=== PATIENT | female | born 1970 | race Caucasian/White ===

== ENCOUNTER → 2021-09-27 12:36 | Outpatient (BNVA) | payer OTHER, SELFPAY | PROVIDERS: Family Provider Nurse Practitioner Family; PCP Nurse Practitioner Family; Visit Provider Emergency Medicine | DX: R68.89 Other general symptoms and signs (principal); J02.9 Acute pharyngitis, unspecified | CPT/HCPCS: 87071; 87400; 87880 ==

== ENCOUNTER → 2023-02-27 10:29 | Outpatient (BNVA) | payer OTHER, SELFPAY | PROVIDERS: Family Provider Nurse Practitioner Family; PCP Family Medicine; Referring Provider Family Medicine; Visit Provider Nurse Practitioner Family | DX: M19.011 Primary osteoarthritis, right shoulder (principal); G54.0 Brachial plexus disorders | CPT/HCPCS: 73030 ==

== ENCOUNTER → 2023-11-18 13:33 | Outpatient (BNVA) | payer OTHER, SELFPAY | PROVIDERS: Family Provider Nurse Practitioner Family; PCP Family Medicine; Visit Provider Student in an Organized Health Care Education/Training Program | DX: G56.03 Carpal tunnel syndrome, bilateral upper limbs; M65.352 Trigger finger, left little finger | CPT/HCPCS: 73130 ==

== ENCOUNTER → 2024-03-12 09:12 | Outpatient (BNVA) | payer OTHER, SELFPAY | PROVIDERS: Family Provider Nurse Practitioner Family; PCP Family Medicine; Visit Provider Family Medicine | DX: F33.1 Major depressive disorder, recurrent, moderate (principal); I10 Essential (primary) hypertension | CPT/HCPCS: 80053; 80061; 84439; 84443; 85025 ==

== ENCOUNTER 2024-06-17 17:35 | Outpatient (CLI) | payer OTHER, SELFPAY ==
[2024-06-17 18:27] LABS: Basophils # 0.1 10^3/uL (0.0-0.1); Eosinophils % 0.8 %; Hematocrit 39.5 % (36-47); Lymphocytes # 2.3 10^3/uL (0.8-4.8); Lymphocytes % 46.9 %; Mean Corpuscular HGB Conc 33.2 g/dL (30-55); Mean Corpuscular Hemoglobin 30.6 pg (27-33); Mean Corpuscular Volume 92.3 fl (85-98); Mean Platelet Volume 9.3 fL (7.4-10.4); Monocytes # 0.6 10^3/uL (0.2-0.9); Monocytes % 11.1 %; Neutrophils # 1.98 10^3/uL (1.8-7.7); Nucleated Red Blood Cells % 0 %; Platelet Count 274 10^3/cmm (157-399); Red Blood Count 4.28 10^6/uL (3.85-5.65); Red Cell Distribution Width 11.9 % (12.1-15.1); White Blood Count 4.95 10^3/uL (3.29-11.43)
[2024-06-17 18:30] LABS: Erythrocyte Sedimentation Rate 13 mm/hr (0-15)
[2024-06-17 18:40] LABS: Alanine Aminotransferase 7 U/L (0-33); Albumin Level 4.6 g/dL (3.5-5.2); Alkaline Phosphatase 67 U/L (35-105); Anion Gap 16.9 (5-19); Aspartate Amino Transferase 13 U/L (0-32); Blood Urea Nitrogen 13 mg/dL (6-20); Calcium 9.4 mg/dL (8.5-10.5); Carbon Dioxide 25 mmol/L (22-29); Chloride 101 mmol/L (98-107); Globulin 2.8 g/dL (1.3-4.6); Glomerular Filtration Rate 128.1 mL/min (90-130); Glucose 88 mg/dL (65-115); Osmolality Calculated 288 mOsm/kg (285-295); Potassium 3.9 mmol/L (3.5-5.1); Sodium 139 mmol/L (136-145); Total Bilirubin 0.3 mg/dL (0.15-1.2); Total Protein 7.4 g/dL (6.6-8.7); Uric Acid 3.4 mg/dL (2.4-5.7)
== END 2024-06-17 17:36 | disposition home or self-care (01) ==
LOC: LAB 17:36
PROVIDERS: Family Provider Nurse Practitioner Family; PCP Family Medicine; Visit Provider Student in an Organized Health Care Education/Training Program
DX: M06.4 Inflammatory polyarthropathy (principal)
CPT/HCPCS: 36415; 80053; 84550; 85025; 85651; 86140; 86200; 86225; 86235; 86431

== ENCOUNTER 2024-10-13 18:08 | Emergency (ER) | payer OTHER, SELFPAY ==
[2024-10-13] VITALS (10 sets, daily range): BP systolic 124–151; BP diastolic 68–87; PULSE 77–104; RESP 16–17; TEMP 36.6; O2SAT 95–99; BMI 25.8
--- NOTE | 2024-10-13 18:36 | ED_ITS ---
HPI - Nausea/Vomiting/Diarrhea 2 General: Chief complaint: Nausea/Vomiting/Diarrhea Stated complaint: vomitting Time Seen by Provider: 10/13/24 18:17 Source: patient Mode of arrival: ambulatory Limitations: no limitations History of Present Illness: Patient is a 53-year-old female who presents to the emergency department complaining of sudden onset nausea and vomiting beginning this afternoon. Patient states she ate turkey sausage and eggs this morning, went to the gym afterwards and got overwhelmingly sick to where she has been vomiting all day. Denies any blood or coffee-ground emesis with her vomit. States that she eats what she ate this morning all the time, has never had issues before. Denies any constipation, diarrhea, or changes in her bowel habits. Denies any pertinent past medical history. Denies known sick contacts. She does comment that she got sick like this once in the past and had to be admitted to the hospital due to severe dehydration. She is reporting some minor abdominal cramping which she thinks is from retching/vomiting. She notes that she has not been able to keep down liquids or solids. MD elicited complaint: nausea, vomiting and abdominal pain Onset (ago): hour(s) Associated nausea: Yes Associated abdominal pain: Yes Location of pain: Epigastric Severity: mild Quality: cramping Associated symtoms: Reports nausea; Denies chest pain, diaphoresis, dizziness, dysuria, headache(s) or palpitations Related Data Previous Rx's Medication Instructions Recorded ondansetron HCl 4 mg tablet 4 mg PO Q8H #20 tabs 10/13/24 Allergies Allergy/AdvReac Type Severity Reaction Status Date / Time No Known Allergies Allergy Verified 07/08/24 14:55 Review of Systems 2 General: Reports: 10 or more systems reviewed and unremarkable except in HPI and below Const: Denies: fever(s), chills, change in appetite, change in weight or diaphoresis ENMT: Denies: throat pain or hoarseness Card: Denies: chest pain, palpitations or lightheadedness Resp: Denies: dyspnea, productive cough or wheezing GI: Reports: abdominal pain, nausea and vomiting; Denies: hematemesis, coffee ground emesis, diarrhea or constipation : Denies: flank pain, difficulty voiding, dysuria, urinary frequency or urinary urgency Musc: Denies: neck pain or back pain Skin/Breast: Denies: rash or new lesions Neuro: Denies: headache(s) or dizziness PFSH ED 2 PFSH: Medical History Major depression Benign hypertension Meningioma Surgical History History of cholecystectomy History of tubal ligation S/P brain surgery Social History Smoking and tobacco/nicotine status: former use of tobacco/nicotine Alcohol intake: never Substance/Drug Use: never Caregiver/support person: Yes Lives independently: No Household members: spouse and children Housing: House Marital status: Do you think of yourself as: Straight/Heterosexual Current gender identity: Female Female Reproductive History: Date of menopause: 10/20/09 Physical Exam 2 Const: COMMON NORMALS: no acute distress, average body habitus, no limitations, healthy appearing and well nourished GENERAL APPEARANCE: c ooperative and comfortable ORIENTATION/CONSCIOUSNESS: Yes awake Eye: COMMON NORMALS: Equal, round and reactive pupils present, EOMs intact bilaterally, conjunctivae normal and normal visual chaudhary by confrontation C ONJUNCTIVA: Yes conjunctivae normal PUPIL: Yes Equal, round and reactive pupils present Neck/C-Spine: COMMON NORMALS: full ROM, supple and no JVD Resp: COMMON NORMALS: normal respiratory effort, No retractions, No use of accessory muscles and clear to auscultation bilaterally AUSCULTATION: clear to auscultation bilaterally, no crackles, no rales, no rhonchi and no wheezes Cardio: COMMON NORMALS: no JVD, regular rate, regular rhythm, S1 normal heart sound present, S2 normal heart sound present, No gallops present (Cardio), No clicks present (Cardio), No murmurs present (Cardio), No rub (Cardio) and Peripheral pulses 2+ throughout RATE: regular rate RHYTHM: regular rhythm HEART SOUNDS: S1 normal heart sound present and S2 normal heart sound present PERIPHERAL PULSES: Peripheral pulses 2+ throughout GI: COMMON NORMALS: Normal to inspection, nondistended, normoactive bowel sounds present, Soft to palpation, non-tender, No hepatosplenomegaly present and no masses AUSCULTATION: Yes normoactive bowel sounds PALPATION: Yes Soft to palpation, No Guarding due to palpation present (GI), No Rigid due to palpation and Yes No hepatosplenomegaly present RECTAL EXAM: deferred : COMMON NORMALS: Yes no CVA tenderness BLADDER/KIDNEY EXAM: Yes no CVA tenderness Back/Pelvis: COMMON NORMALS: no CVA tenderness Extremity: COMMON NORMALS: normal to inspection and full ROM Skin: COMMON NORMALS: no rashes or lesions noted GENERAL SKIN EXAM: no rashes or lesions noted Course 2 Vital Signs: Vital signs: Vital Signs Temperature 98 F 10/13/24 18:11 Pulse Rate 97 10/13/24 18:30 Respiratory Rate 17 10/13/24 18:11 Blood Pressure 151/84 10/13/24 18:11 Pulse Oximetry 98 10/13/24 18:30 Oxygen Delivery Me thod Room Air 10/13/24 18:11 MDM - Nausea/Vomiting/Diarrhea Medical Decision Making Patient presented with acute onset nausea and vomiting, states that she had severe viral gastroenteritis in the past where she needed admitted to the hospital. All of her blood work today including a urinalysis was negative. She notes significant proving after receiving IV fluids and antiemetics. States she is ready to go home, but wants prescription for these antiemetics to take at home in case this comes back. Will prescribe Zofran, strict return precautions were given. Her vitals have been stable throughout ED stay. Lab Data 10/13/24 18:41 10/13/24 18:41 Laboratory Results WBC 9.23 10^3/uL (3.29-11.43) 10/13/24 18:41 RBC 4.71 10^6/uL (3.85-5.65) 10/13/24 18:41 Hgb 14.40 g/dL (11.27-16.99) 10/13/24 18:41 Hct 43.1 % (36-47) 10/13/24 18:41 MCV 91.5 fl (85-98) 10/13/24 18:41 MCH 30.6 pg (27-33) 10/13/24 18:41 MCHC 33.4 g/dL (30-55) 10/13/24 18:41 RDW 12.0 % (12.1-15.1) L 10/13/24 18:41 Plt Count 271 10^3/cmm (157-399) 10/13/24 18:41 MPV 9.1 fL (7.4-10.4) 10/13/24 18:41 Neut % (Auto) 91.6 % 10/13/24 18:41 Lymph % (Auto) 3.6 % 10/13/24 18:41 [place] % (Auto) 4.2 % 10/13/24 18:41 Eos % (Auto) 0.3 % 10/13/24 18:41 Baso % (Auto) 0.1 % 10/13/24 18:41 Neut # (Auto) 8.45 10^3/uL (1.8-7.7) H 10/13/24 18:41 Lymph # (Auto) 0.3 10^3/uL (0.8-4.8) L 10/13/24 18:41 [place] # (Auto) 0.4 10^3/uL (0.2-0.9) 10/13/24 18:41 Eos # (Auto) 0.0 10^3/uL (0.0-0.8) 10/13/24 18:41 Baso # (Auto) 0.0 10^3/uL (0.0-0.1) 10/13/24 18:41 Nucleated RBC % (auto) 0 % 10/13/24 18:41 Nucleated RBCs # 0.0 /100WBC 10/13/24 18:41 Sodium 140 mmol/L (136-145) 10/13/24 18:41 Potassium 4.2 mmol/L (3.5-5.1) 10/13/24 18:41 Chloride 104 mmol/L (98-107) 10/13/24 18:41 Carbon Dioxide 24 mmol/L (22-29) 10/13/24 18:41 Anion Gap 16.2 (5-19) 10/13/24 18:41 BUN 18 mg/dL (6-20) 10/13/24 18:41 Creatinine 0.5 mg/dL (0.5-0.9) 10/13/24 18:41 GFR Calculation 128.1 mL/min (90-130) 10/13/24 18:41 Glucose 157 mg/dL (65-115) H 10/13/24 18:41 Calculated Osmolality 295 mOsm/kg (285-295) 10/13/24 18:41 Calcium 9.2 mg/dL (8.5-10.5) 10/13/24 18:41 Total Bilirubin 0.7 mg/dL (0.15-1.2) 10/13/24 18:41 AST 14 U/L (0-32) 10/13/24 18:41 ALT < 5 U/L (0-33) 10/13/24 18:41 Alkaline Phosphatase 74 U/L (35-105) 10/13/24 18:41 Total Protein 7.7 g/dL (6.6-8.7) 10/13/24 18:41 Albumin 4.4 g/dL (3.5-5.2) 10/13/24 18:41 Globulin 3.3 g/dL (1.3-4.6) 10/13/24 18:41 Lipase 27 U/L (13-60) 10/13/24 18:41 Urine Color Yellow (Yellow) 10/13/24 19:30 Urine Appearance Clear (CLEAR) 10/13/24 19:30 Urine pH 5.5 (5-7) 10/13/24 19:30 Ur Specific [place] 1.025 (1.005-1.030) 10/13/24 19:30 Urine Protein Negative (Negative) 10/13/24 19:30 Urine Glucose (UA) Negative (Normal) 10/13/24 19:30 Urine Ketones 2+ (Negative) H 10/13/24 19:30 Urine Blood Negative (Negative) 10/13/24 19:30 Urine Nitrate Negative (Negative) 10/13/24 19:30 Urine Bilirubin Negative (Negative) 10/13/24 19:30 Urine Urobilinogen 1.0 mg/dL (Negative) 10/13/24 19:30 Ur Leukocyte Esterase Negative (Negative) 10/13/24 19:30 Urine RBC 0-2 /hpf (0-2) 10/13/24 19:30 Urine WBC 0-5 /hpf (0-5) 10/13/24 19:30 Ur Squamous Epith Cells 0-5 /hpf (0-5) 10/13/24 19:30 Amorphous Sediment Not Reportable 10/13/24 19:30 Urine Bacteria None seen /hpf (NONE) 10/13/24 19:30 Hyaline Casts 0.40 /lpf 10/13/24 19:30 No radiology studies performed this visit Discharge Plan Discharge Patient Disposition: Home Clinical Impression: Viral gastroenteritis Condition: Stable Prescriptions: New ondansetron HCl 4 mg tablet 4 mg PO Q8H Qty: 20 0RF Discharge Orders: Discharge ED (Routine); Ordered 10/13/24 Ordered By: Aaron Hartmann Referrals: Thad Dawn FNP [Family Provider] - Mario Alberto Medrano MD [Primary Care Provider] - Patient Instructions: Gastroenteritis (ED) Activity Restrictions/Additional Instructions: Make sure that you are drinking plenty of fluids. Zofran for your nausea. Please return if you develop any pain, worsening of symptoms, or other concerning signs. Follow-up with your primary care provider. Coding Level of Care Code ED Explosives Detonator for Yoshi Brandon
[2024-10-13] MEDS: sodium chloride 0.9% 1,000 ML 999 ML IV (18:45)
[2024-10-13] MEDS: ondansetron 2 mg/ML SDV 2 mL 8 MG IVP (18:45)
[2024-10-13 19:05] LABS: Basophils % 0.1 %; Eosinophils % 0.3 %; Hematocrit 43.1 % (36-47); Lymphocytes # 0.3 10^3/uL (0.8-4.8); Lymphocytes % 3.6 %; Mean Corpuscular HGB Conc 33.4 g/dL (30-55); Mean Corpuscular Hemoglobin 30.6 pg (27-33); Mean Corpuscular Volume 91.5 fl (85-98); Mean Platelet Volume 9.1 fL (7.4-10.4); Monocytes # 0.4 10^3/uL (0.2-0.9); Monocytes % 4.2 %; Neutrophils # 8.45 10^3/uL (1.8-7.7); Neutrophils % 91.6 %; Nucleated Red Blood Cells % 0 %; Platelet Count 271 10^3/cmm (157-399); Red Blood Count 4.71 10^6/uL (3.85-5.65); White Blood Count 9.23 10^3/uL (3.29-11.43)
[2024-10-13 19:22] LABS: Alanine Aminotransferase < 5 U/L (0-33); Albumin Level 4.4 g/dL (3.5-5.2); Alkaline Phosphatase 74 U/L (35-105); Anion Gap 16.2 (5-19); Aspartate Amino Transferase 14 U/L (0-32); Blood Urea Nitrogen 18 mg/dL (6-20); Calcium 9.2 mg/dL (8.5-10.5); Carbon Dioxide 24 mmol/L (22-29); Chloride 104 mmol/L (98-107); Creatinine Clr Calc Pharmacy 138.8492; Globulin 3.3 g/dL (1.3-4.6); Glomerular Filtration Rate 128.1 mL/min (90-130); Glucose 157 mg/dL (65-115); Lipase 27 U/L (13-60); Osmolality Calculated 295 mOsm/kg (285-295); Potassium 4.2 mmol/L (3.5-5.1); Sodium 140 mmol/L (136-145); Total Bilirubin 0.7 mg/dL (0.15-1.2); Total Protein 7.7 g/dL (6.6-8.7)
[2024-10-13 19:47] LABS: Bacteria Urine None Seen /hpf; RBC Urine 0-2 /hpf (0-2); Squamous Epithelial Cell Urine 0-5 /hpf (0-5); WBC Urine 0-5 /hpf (0-5)
[2024-10-13 20:07] LABS: Add Urine Microscopic? YES; Bilirubin Urine Negative (Negative); Blood Urine Negative (Negative); Glucose Urine UA Negative (Normal); Ketones Urine 2+ (Negative); Leukocyte Esterase Urine Negative (Negative); Nitrate Urine Negative (Negative); Protein Urine Negative (Negative); Specific Gravity, Urine 1.025 (1.005-1.030); Urine Appearance Clear (CLEAR); Urine Color Yellow (Yellow); pH Urine 5.5 (5-7)
[2024-10-13] MEDS: ondansetron 2 mg/ML SDV 2 mL 4 MG IVP (20:42)
== END 2024-10-13 20:54 | disposition home or self-care (01) ==
PROVIDERS: Emergency Provider Physician Assistant; Family Provider Nurse Practitioner Family; PCP Family Medicine
DX: A08.4 Viral intestinal infection, unspecified (principal); Z87.891 Personal history of nicotine dependence; I10 Essential (primary) hypertension
CPT/HCPCS: 36415; 80053; 81001; 83690; 85025; 96374; 96376; 99284; J2405; J7030

== ENCOUNTER 2025-05-23 07:01 | Outpatient (CLI) | payer OTHER, SELFPAY ==
--- NOTE | 2025-05-23 07:30 | US_ITS ---
WS: [id number] Complete ABDOMINAL ULTRASOUND HISTORY: inguinal hernia COMPARISON: None available. Liver: 15.6 cm in length. Normal size liver and echogenicity. No bile duct dilatation or mass. Portal Vein: Normal hepatopetal flow with monophasic waveform. Gallbladder: Normally distended gallbladder with no stones or wall thickening. CBD: 0.2 cm Pancreas: Normal size and echogenicity. Right kidney: 11.7 cm x 4.0 x 4.2 cm. Cortex:1.0 cm. Normal size and echogenicity. No hydronephrosis or mass. Left kidney: 11.6 cm x 5.7 cm x 5.9 cm. Cortex: 1.1 cm. Normal size and echogenicity. No hydronephrosis or mass. Spleen: 9.3 cm. Normal size and echogenicity. Aorta and IVC: Atherosclerosis aorta. No aneurysm. In the LEFT inguinal canal there is nondilated loop of GI tract. There is no fluid within the hernia sac. US/US abdomen complete* [id number] Impression: 1. LEFT inguinal hernia containing a loop of GI tract, likely small bowel. No obstruction. No fluid in the hernia sac. 2. Negative gallbladder. 3. Atherosclerosis aorta.
== END 2025-05-23 07:02 | disposition home or self-care (01) ==
LOC: RAD 07:02
PROVIDERS: PCP Family Medicine; Visit Provider Family Medicine
DX: K40.90 Unilateral inguinal hernia, without obstruction or gangrene, not specified as recurrent (principal)
CPT/HCPCS: 76700

== ENCOUNTER 2025-06-23 07:19 | Day surgery (SDC) | payer OTHER, SELFPAY ==
[2025-06-23] VITALS (8 sets, daily range): BP systolic 115–173; BP diastolic 72–97; PULSE 57–86; RESP 17–18; TEMP 36.1–36.3; O2SAT 93–100
--- NOTE | 2025-06-23 08:32 | W.PM.OPSUD ---
Surgery/Procedure H&P Update DATE OF PROCEDURE: June 23, 2025 DATE H&P PERFORMED: 05/24/95 H&P UPDATE INFORMATION: I have reviewed H&P completed within last 30 days, I have examined patient prior to procedure, No changes to prior documentation, H&P is in [facility] EMR on date indicated and Risks and benefits of the procedure reviewed PLANNED PROCEDURE: Operation Date: 06/23/25 09:10 Proposed Procedures p Laparoscopic POSSIBLE OPEN Inguinal Hernia Repair w/Mesh(Left) - Aaron Lees MD
[2025-06-23] MEDS: ceFAZolin 2,000 mg SDV 2000 MG IVP (09:00)
--- NOTE | 2025-06-23 09:01 | ANES.PREANE2 ---
Pre-Anesthetic Assessment Height/Weight: Height 1.73 m Weight 155 g Temp Pulse Resp BP Pulse Ox O2 Del Method 97.0 F L 69 17 173/97 98 Room Air 06/23/25 07:41 06/23/25 07:41 06/23/25 07:41 06/23/25 07:41 06/23/25 07:41 06/23/25 07:42 Preop Diagnosis: Hernia Operation Date: 06/23/25 09:10 Proposed Procedures p Laparoscopic POSSIBLE OPEN Inguinal Hernia Repair w/Mesh(Left) - Aaron Lees MD Familial anesthetic complications: none Was Beta Laina taken within 24 hours: N/A Was Clonidine taken within 24 hours: N/A Last intake: Intake Last Liquid Date 06/22/25 Last Liquid Time 21:30 Last Solid Date 06/22/25 Last Solid Time 20:00 Social No alcohol and No tobacco former smoker Exam alert, oriented x 3, clear to auscultation bilaterally and regular rate & rhythm Airway Cervical ROM: within normal limits Mallampati: Class II Dentition: full Pulmonary None reported CV/HEM Hypertension None reported Hepatic None reported GI None reported Metabolic None reported Musc/skel None reported Neuropsych Depression Anesthetic Plan ASA status: 2 Anesthesia: General Other: GETA Risk of > 500 ml blood loss (7ml/kg in children): No Medications/Allergies Home Medications ?Medication ?Instructions ?Recorded ?Confirmed ?Last Taken ?Type No Known Home Medications 05/24/25 06/22/25 Unknown History Allergies Allergy/AdvReac Type Severity Reaction Status Date / Time codeine Allergy ADR-Nausea Verified 06/22/25 16:35 Current Medications Generic Name Dose Route Start Last Admin Trade Name Sherry PRN Reason Stop Dose Admin Sodium Chloride 1,000 mls @ 30 mls/hr 06/23/25 07:45 06/23/25 07:52 Sodium Chloride 0.9% IV 06/24/25 07:44 30 mls/hr .Q24H LEROY Administration PFSH Anesthesia Medical History (Updated 05/10/25 @ 10:28 by Mario Alberto Medrano MD) Major depression Benign hypertension Meningioma Surgical History History of cholecystectomy History of tubal ligation S/P brain surgery Social History Smoking and tobacco/nicotine status: former use of tobacco/nicotine Alcohol intake: never Substance/Drug Use: never Caregiver/support person: Yes Lives independently: No Household members: spouse and children Housing: House Marital status: Do you think of yourself as: Straight/Heterosexual Current gender identity: Female Female Reproductive History Date of menopause: 10/20/09
[2025-06-23] MEDS: lidocaine-epi 1% 20 mL INJ INJECTION (10:15)
[2025-06-23] MEDS: BUPivacaine 0.25% INJ 10 mL INJECTION (10:15)
--- NOTE | 2025-06-23 10:30 | P.OP_ITS ---
Operative Report Date of procedure: June 23, 2025 Pre-op diagnosis: Left inguinal hernia Post-op diagnosis: Same Post-op findings: There was an indirect left inguinal hernia. Otherwise normal anatomy of the left groin Procedure done: Laparoscopic repair of left inguinal hernia Implants: Medium size left-sided Bard 3D max mesh Surgeon: Aaron Lees MD Gynaecological Oncologist: GERARD OR STaff Estimated blood loss: 5 Brief History: 54-year-old female with a left inguinal hernia who presented for repair after discussion of all risk benefits as documented by. Note we decide to proceed with a laparoscopic repair. Procedure: Patient was brought into the OR, she was placed in a spine position. General anesthesia was given. The abdomen was prepped and draped in the usual sterile fashion. Timeout was conducted. A 1.5 cm infraumbilical incision was made, incision was deepened until the anterior rectus sheath of the left side was identified. The rectus sheath was then opened with electrocautery, the rectus muscle was retracted laterally exposing the retrorectus space. The balloon was carefully advanced into the preperitoneal space and insufflated under direct visualization. The balloon was then replaced with a 12 mm balloon trocar. Insufflation was started and initial laparoscopy showed good development of the preperitoneal space. Additional 5 mm trocars were placed in the suprapubic and infraumbilical location under direct visualization. With careful blunt dissection I was able to dissect the preperitoneal space, no evidence of direct or femoral hernia were noticed. I then proceeded to develop the lateral space of Borg[place] and once completely developed I then placed my attention to the area of the round ligament, a small lipoma of the cord was noted was reduced. A small indirect hernia was noted, the sac was completely taken down about 5 to 6 cm from the internal ring. The round ligament was preserved. A left-sided medium 3D max mesh was placed in the space and tacked to the pubic tubercle. The space was desufflated and the mesh was noted to be in good position. Trocars were removed. The anterior rectus sheath was closed with #0 Vicryl. The wounds were closed in layers using #3-0 Vicryl for the subcutaneous tissue #4-0 Monocryl for the skin. Local anesthesia was infiltrated. Dermabond was applied. At the end of the procedure all counts were correct the patient tolerated well the procedure was transferred to the PACU in stable condition.
[2025-06-23] MEDS: fentaNYL 50 mcg/mL INJ 2mL IVP ×2 (10:50→10:55)
--- NOTE | 2025-06-23 12:10 | ANE.PACU2 ---
Inpatient post-anesthesia follow up: Airway intact: Yes Vital signs: Temperature 97 F Pulse Rate 69 Respiratory Rate 17 Blood Pressure 145/83 Pulse Oximetry 100 Oxygen Delivery Me thod Room Air Oxygen Flow Rate Fraction of Inspir ed Oxygen Hydration adequate: Yes Nausea and vomiting: No Pain level: 1 Mental status: Baseline
== END 2025-06-23 12:12 | disposition home or self-care (01) ==
PROVIDERS: Family Provider Nurse Practitioner Family; PCP Family Medicine; Visit Provider Surgery
PROC: (CPT 49650; principal; 2025-06-23 09:00)
DX: K40.90 Unilateral inguinal hernia, without obstruction or gangrene, not specified as recurrent (principal); I10 Essential (primary) hypertension; F32.A Depression, unspecified; D32.9 Benign neoplasm of meninges, unspecified; Z87.891 Personal history of nicotine dependence
CPT/HCPCS: 49650; C1781; J0131; J0690; J1100; J1885; J2250; J2405; J2704; J3010; J3490; J7030; J9999